=== PATIENT | male | born 1990 | race Caucasian/White ===

== ENCOUNTER → 2019-11-23 | Outpatient (CLI) | payer OTHER ==
--- NOTE | 2019-11-23 15:46 | RAD ---
EXAM: Scrotal sonogram. HISTORY: Pain. TECHNIQUE: Grayscale and color Doppler sonographic imaging of the scrotum was performed. COMPARISON: None. FINDINGS: The testes are normal in size and demonstrate normal symmetric blood flow. No focal testicular proximal lesion is seen. There is a left varicocele. No hydrocele is seen. There is no hernia. The epididymides are unremarkable. IMPRESSION: 1. Left varicocele. 2. Otherwise, unremarkable scrotal sonogram. Electronically signed by: Mavis Pena MD (11/23/2019 3:43 PM) [place] [id number]
== END | disposition home or self-care (01) ==
LOC: PMG 13:48
PROVIDERS: ATTEND Family Medicine
DX: I86.1 Scrotal varices (principal)
CPT/HCPCS: 76870

== ENCOUNTER 2021-05-24 01:37 | Emergency (ER) | payer SELFPAY ==
[~2021-05-24] VITALS: Ht 165.1 cm; Wt 80.0 kg
[2021-05-24] MEDS ORDERED: IPRATRPIUM/ALBUTEROL 0.5/2.5MG 3 ML NEBU. ONE (01:41)
--- NOTE | 2021-05-24 01:41 | PHYS DOC ---
General Adult EDM: Chief Complaint: ALLERGIC REACTION HPI: HPI: ".. I am having a allergic reaction... It may because of my friends dog...or maybe the Black Lopez and salsa... My lips and mouth started swelling right after I ate it..." " The only other time he had this was when I was a kid..and it was because I was allergic to dogs.." Patient is a 30 year old male who presents with complaints of allergic reaction. Has extensive hives. Swollen lip and tongue. Acute onset after eating black beans and salsa. Patient was visiting with friends and came in out of town who had a dog. Patient denies other new foods or changes in exposures. Patient reports previous episode when he was a child. Has felt to be related to exposure to a dog. Patient complaining of marked wheezing. Patient having some obvious upper airway stridor. Patient denies any travel. Patient denies specific ill contacts. Review of Systems: Review of Systems: Constitutional: Denies fever or chills Eyes: Denies change in visual acuity HENT: Complains of nasal congestion and tight throat Respiratory: Complains of cough and shortness of breath Cardiovascular: Denies chest pain or edema GI: Denies abdominal pain, nausea, vomiting, bloody stools or diarrhea : Denies dysuria Musculoskeletal: Denies back pain or joint pain Integument: Complains of hives Neurologic: Denies headache, focal weakness or sensory changes Endocrine: Denies polyuria or polydipsia Lymphatic: Denies swollen glands Psychiatric: Denies depression or anxiety Family History: Family History: Noncontributory to presentation Current Medications: Current Meds: See nursing for home meds Allergies: Allergies: Allergic to dogs Physical Exam: PE: Constitutional: Well developed, well nourished, in acute distress, non-toxic appearance. [] HENT: Normocephalic, atraumatic, bilateral external ears normal, oropharynx moist, no oral exudates, nose swollen turbinates and clear rhinorrhea. Swollen lips. Swollen tongue. Eyes: PERRLA, EOMI, conjunctiva normal, no discharge. [] Neck: Normal range of motion, no tenderness, supple, upper airway stridor. [] Cardiovascular: Tachycardia heart rate, regular rhythm, no murmur [] Lungs & Thorax: Bilateral breath sounds equal apex with scattered wheezing throughout on auscultation [] Abdomen: Bowel sounds normal, soft, no tenderness, no masses, no pulsatile masses. [] Skin: Warm, dry, no erythema, hives or entire body Back: No tenderness, no CVA tenderness. [] Extremities: No tenderness, no cyanosis, no clubbing, ROM intact, no edema. [] Neurologic: Alert and oriented X 3, normal motor function, normal sensory function, no focal deficits noted. [] Psychologic: Affect anxious, judgement normal, mood normal. [] EKG: EKG: EKG shows sinus tachycardia 102 bpm. No acute morphology. Does have mild leftward axis. [] Radiology/Procedures: Radiology/Procedures: Patient refuses chest x-ray [] Heart Score: C/O Chest Pain: No Risk Factors: Risk Factors: DM, Current or recent (<one month) smoker, HTN, HLP, family history of CAD, obesity. Risk Scores: Score 0 - 3: 2.5% MACE over next 6 weeks - Discharge Home Score 4 - 6: 20.3% MACE over next 6 weeks - Admit for Clinical Observation Score 7 - 10: 72.7% MACE over next 6 weeks - Early Invasive Strategies Course & Med Decision Making: Course & Med Decision Making Pertinent Labs and Imaging studies reviewed. (See chart for details) Patient had multiple breathing treatments, loaded with Solu-Medrol 125, Benadryl 50 mg, Pepcid 20 mg IV, and given milk of mag 30 cc p.o. Patient did receive subcu epinephrine 1 mg. Patient did receive a bolus of fluids LR. Patient did have gradual resolution of symptoms. Patient did take Benadryl 25 to 50 mg 4 times a day. Patient take Pepcid 20 mg twice a day. Patient take prednisone 50 mg daily for 5 days. Patient use MDI 2 puffs 4 times a day. Patient follow-up with primary care. Patient return if any concerns. Patient was encouraged to stay for further observation or admission however refused stating he had to be his job this morning. Patient left AMA with [facility] Impression: -1. Acute allergic reaction-anaphylaxis [] Dragon Disclaimer: Dragon Disclaimer: This electronic medical record was generated, in whole or in part, using a voice recognition dictation system. Departure Departure: Referrals: MISTI MORRISON MD (PCP) Scripts Prednisone (PREDNISONE) 50 Mg Tablet 50 MG PO DAILY for allergic for 5 Days, #5 TAB Prov: OFE SALINAS MD 05/24/21 Randy Disclaimer This chart was dictated in whole or in part using Voice Recognition software in a busy, high-work load, and often noisy Emergency Department environment. It may contain unintended and wholly unrecognized errors or omissions. OFE SALINAS MD May 24, 2021 01:41
[2021-05-24] MEDS ORDERED: methylPREDNISolone SOD SUCC PF 125 MG/2 ML VIAL. ONE (01:42)
[2021-05-24] MEDS ORDERED: methylPREDNISolone SOD SUCC PF 125 MG/2 ML VIAL. IV ONE (01:45)
[2021-05-24] MEDS ORDERED: FAMOTIDINE 20 MG/2 ML VIAL IVP ONE (01:45)
[2021-05-24] MEDS ORDERED: IPRATRPIUM/ALBUTEROL 0.5/2.5MG 3 ML NEBU. NEB ONE ×2 (01:45)
[2021-05-24] MEDS ORDERED: diphenhydrAMINE 50 MG/ML VIAL IV ONE (01:45)
[2021-05-24] MEDS ORDERED: IV RINGERS SOLUTION,LACTATED 1,000 ML IV SCH (01:45)
[2021-05-24 02:09] VITALS: BP 141/75
[2021-05-24] MEDS ORDERED: MAGNESIUM HYDROXIDE 2,400 MG/30 ML ORAL.SUSP. PO ONE (02:45)
[2021-05-24 02:52] LABS: BASO % 0 % (0-3); EOS # 0.1 x10^3/uL (0.0-0.7); EOS % 1 % (0-3); HEMATOCRIT 43.4 % (39.0-53.0); HEMOGLOBIN 14.6 g/dL (13.0-17.5); LYMPH # 2.2 x10^3/uL (1.0-4.8); LYMPH % 29 % (24-48); MEAN CORPUSCULAR HEMOGLOBIN 32 pg (25-35); MEAN CORPUSCULAR HGB CONC 34 g/dL (31-37); MEAN CORPUSCULAR VOLUME 96 fL (79-100); MONO # 0.5 x10^3/uL (0.0-1.1); MONO % 6 % (0-9); NEUT # 4.8 x10^3uL (1.8-7.7); NEUT % 64 % (31-73); PLATELET COUNT 271 x10^3/uL (140-400); RED BLOOD COUNT 4.52 x10^6/uL (4.30-5.70); RED CELL DISTRIBUTION WIDTH 12.5 % (11.5-14.5); WHITE BLOOD COUNT 7.5 x10^3/uL (4.0-11.0)
[2021-05-24 03:10] LABS: ALBUMIN 4.4 g/dL (3.4-5.0); DIRECT BILIRUBIN 0.1 mg/dL (0.0-0.2); MAGNESIUM 2.2 mg/dL (1.8-2.4); TOTAL BILIRUBIN 0.4 mg/dL (0.2-1.0); TOTAL PROTEIN 7.3 g/dL (6.4-8.2)
[2021-05-24 03:22] LABS: HEMOGLOBIN ISTAT 15.6 gm/dL; POTASSIUM ISTAT 3.7 mmol/L (3.5-5.0)
--- NOTE | 2021-05-24 03:41 | EKG ---
[address] [address] Test Date: 2021-05-24 Test Time: 01:53:22 Pat Name: MEET GARCÍA Department: Room: Gender: M [employer] Operator: : [id number] Requested By: OFE SALINAS Order Number: [id number] Reading MD: Measurements Intervals Dexter Rate: 102 P: -18 AL: 106 QRS: 0 QRSD: 92 T: 26 QT: 328 QTc: 432 Interpretive Statements SINUS TACHYCARDIA LEFTWARD AXIS OTHERWISE NORMAL ECG RI6.02 No previous ECG available for comparison
[2021-05-24] MEDS ORDERED: ALBUTEROL SULFATE 8GM INHALER. INH ONE (03:45)
[2021-05-24] MEDS ORDERED: PRED50TA PO (03:49)
[2021-05-24 04:17] LABS: BARBITURATES NEG (NEG); BENZODIAZEPINES NEG (NEG); CANNABINOIDS NEG (NEG); COCAINE NEG (NEG); METHADONE NEG (NEG); OPIATES NEG (NEG); PHENCYCLIDINE NEG (NEG)
[2021-05-24 04:23] LABS: AMPHETAMINE/METHAMPHETAMINE POS (NEG)
== END 2021-05-24 03:59 | disposition left against medical advice (07) ==
LOC: ER 01:37
DX: T78.40XA Allergy, unspecified, initial encounter (principal); X58.XXXA Exposure to other specified factors, initial encounter
CPT/HCPCS: 36415; 80047; 80076; 80307; 82550; 83690; 83735; 84484; 85025; 93005; 94640; 96361; 96372; 96374; 96375; 99285; J0171; J1200; J2930; J3490; J7120; 94664